=== PATIENT | female | born 1970 | race Caucasian/White ===

== ENCOUNTER 2022-04-01 12:07 | Emergency (ER) | payer SELFPAY ==
[~2022-04-01] VITALS: Ht 165.1 cm; Wt 51.8 kg
[~2022-04-01 12:07] MED LIST: AMOXICILLIN/CL875 MG PO; ASPIRIN81 MG PO; BACTRIM DS1 TAB PO; CORTISPORIN OTI10 ML AS; FLEXERIL5 M1 PO; FLONASE NASAL50 MCG; IBUPROFEN600 MG PO; MEDDOSEPAK PO; METOPROL TAR25 M1 PO; METRONIDAZOL500 MG PO; NAPROSYN500 MG PO; NITROGLYCER0.4 MG SL; PREDNISONE10 MG PO; PRILOSEC40 MG PO; PROTONIX40 M2 PO; TENORMIN25 MG PO; TUBERSOL5 MG/0.1 M ID
[2022-04-01 13:06] LABS: HEMATOCRIT 44.8 % (37.0-47.0); HEMOGLOBIN 15.1 g/dl (12.0-16.0); IMMATURE GRANULOCYTES 0.2 % (0.0-5.0); MEAN CELL VOLUME 94.5 fL CALC (80.0-100.0); MEAN CORPUSCULAR HGB 31.9 pG CALC (26.0-32.0); MEAN CORPUSCULAR HGB CONC 33.7 g/dL CAL (32.0-36.0); NEUT# 2.97 thou/uL (2.00-7.15); RED BLOOD COUNT 4.74 mill/uL (4.20-5.60); RED CELL DISTRI WIDTH 13.1 % (11.5-15.5)
[2022-04-01 13:11] LABS: ALBUMIN 4.5 g/dL (3.2-5.0); ALKALINE PHOSPHATASE 69 u/l (38-126); ANION GAP 12 (6-22 (CALC)); BILIRUBIN, TOTAL 0.4 mg/dL (0.0-1.4); BUN 10 mg/dL (7-17); BUN/CREATININE RATIO 20 (12-20 (CALC)); CARBON DIOXIDE 26 mmol/l (22-30); CHLORIDE 104 mmol/l (95-108); CREATININE 0.5 mg/dL (0.5-1.0); GFR FOR AFR.AMER. > 60 ML/MIN (>=60 (CALC)); GFR OTHER RACES > 60 ML/MIN (>=60 (CALC)); SGOT/AST 24 u/l (14-36); SODIUM 138 mmol/l (137-146); TOTAL PROTEIN 7.6 g/dL (6.3-8.2)
[2022-04-01 13:22] LABS: POTASSIUM 3.9 mmol/l (3.5-5.1)
[2022-04-01] MEDS ORDERED: KEFLEX500 MG PO (13:41)
[2022-04-01] MEDS ORDERED: BACTRIM DS1 TAB PO (13:41)
[2022-04-01 14:41] VITALS: BP 127/74
== END 2022-04-01 14:41 | disposition home or self-care (01) | DRG 603 ==
LOC: ED 12:07
PROVIDERS: Physician Assistant Surgical
DX: L03.115 Cellulitis of right lower limb (principal)